=== PATIENT | male | born 1950 | race African-American/Black ===

== ENCOUNTER 2016-06-14 19:50 | Inpatient (IN) | payer OTHER ==
[2016-06-14 21:05] VITALS: BMI 24.5
--- NOTE | 2016-06-14 21:13 | HP ---
CIWA Score - CIWA Score Nausea/Vomitin-No Nausea/No Vomiting Muscle Tremors: 1-None Visible, but [employer] [place] Anxiety: 3 Agitation: 3 Paroxysmal Sweats: 3 Orientation: 0-Oriented Tacttile Disturbances: 2-Mild Itch/Numbness/Burn Auditory Disturbances: 0-None Visual Disturbances: 1-Very Mild Sensitivity Headache: 2-Mild CIWA-Ar Total Score: 15 Admission ROS [facility] - HPI Chief Complaint: WITHDRAWAL SYMPTOMS Allergies/Adverse Reactions: Allergies Allergy/AdvReac Type Severity Reaction Status Date / Time ibuprofen Allergy Verified 06/14/16 21:43 History of Present Illness: 65 Y.O. MAN WITH AN EXTENSIVE HISTORY ALCOHOL AND DRUG DEPENDENCE IS SEEKING TREATMENT. HE DOES NOT HAVE A SIGNIFICANT PERIOD OF SOBRIETY. HE IS CURRENTLY ON A MMTP. Exam Limitations: Physical Impairment (USES A CANE TO AMBULATE) - Ebola screening Have you traveled outside of the country in the last 21 days: No Have you had contact with anyone from an Ebola affected area: No Have you been sick,other than usual withdrawal symptoms: No Do you have a fever: No - Review of Systems Constitutional: Chills, Loss of Appetite, Night Sweats, Unintentional Wgt. Loss EENT: reports: Tearing Respiratory: reports: No Symptoms reported Cardiac: reports: No Symptoms Reported GI: reports: No Symptoms Reported, Poor Appetite : reports: No Symptoms Reported Musculoskeletal: reports: Back Pain, Neck Pain, Other (UNSTEADY GAIT) Integumentary: reports: No Symptoms Reported Neuro: reports: Headache, Numbness, Tingling Endocrine: reports: No Symptoms Reported Hematology: reports: No Symptoms Reported Psychiatric: reports: Orientated x3 Other Systems: Reviewed and Negative Patient History - Patient Medical History Hx Anemia: No Hx Asthma: No Hx Chronic Obstructive Pulmonary Disease (COPD): No Hx Cancer: No Hx Cardiac Disorders: No Hx Congestive Heart Failure: No Hx Hypertension: Yes Hx Hypercholesterolemia: No Hx Pacemaker: No HX Cerebrovascular Accident: No Hx Seizures: No Hx Dementia: No Hx Diabetes: Yes Hx Gastrointestinal Disorders: No Hx Liver Disease: No Hx Genitourinary Disorders: No Hx Sexually Transmitted Disorders: Yes (TREATED FOR GONORRHEA SEVERAL YEARS AGO. ) Hx Renal Disease (ESRD): No Hx Thyroid Disease: No Hx Human Immunodeficiency Virus (HIV): No Hx Hepatitis C: Yes (COMPLETED [place] ) Hx Depression: Yes Hx Suicide Attempt: No Hx Bipolar Disorder: No Hx Schizophrenia: No - Patient Surgical History Past Surgical History: Yes Hx Neurologic Surgery: No Hx Cataract Extraction: No Hx Cardiac Surgery: No Hx Lung Surgery: No Hx Breast Surgery: No Hx Breast Biopsy: No Hx Abdominal Surgery: No Hx Appendectomy: No Hx Cholecystectomy: No Hx Genitourinary Surgery: No Hx Section: No Hx Orthopedic Surgery: No Other Surgical History: torn tendon hands 2003, L4 herniated Anesthesia Reaction: No - PPD History Previous Implant?: (+ PPD HX.) Documented Results: Positive w/o proof - Reproductive History Patient is a Female of Child Bearing Age (11 -55 yrs old): No - Smoking Cessation Smoking history: Current every day smoker Have you smoked in the past 12 months: Yes Aproximately how many cigarettes per day: 3 Cigars Per Day: 0 Hx Chewing Tobacco Use: No Initiated information on smoking cessation: Yes 'Breaking Loose' booklet given: 06/14/16 - Substance & Tx. History Hx Alcohol Use: Yes Hx Substance Use: Yes Substance Use Type: Alcohol, Cocaine, Heroin, Tranquilizers Hx Substance Use Treatment: Yes - Substances Abused Alcohol Route: Oral Frequency: Daily Amount used: 1/2 PINT VODKA/ 6 BEERS Age of first use: 37 Date of Last Use: 06/14/16 Cocaine Route: Smoking Frequency: 1-2 times per week Amount used: $10 Age of first use: 47 Date of Last Use: 06/13/16 Heroin Route: Inhalation Frequency: 1-3 times last 30 days Age of first use: 20 Date of Last Use: 06/10/16 Family Disease History - Family Disease History Family Disease History: Heart Disease: Mother ( ) Admission Physical Exam [facility] - Vital Signs Vital Signs: Vital Signs - 24 hr 06/14/16 20:28 Temperature 98.8 F Pulse Rate 64 Respiratory 20 Rate Blood Pressure 152/79 - Physical General Appearance: Yes: Disheveled, Anxious HEENTM: Yes: Normocephalic, Normal Voice Respiratory: Yes: Chest Non-Tender, Lungs Clear, Normal Breath Sounds, No Respiratory Distress, No Accessory Muscle Use Neck: Yes: No masses,lesions,Nodules, Trachea in good position Breast: Yes: Breast Exam Deferred Cardiology: Yes: Regular Rhythm, Regular Rate Abdominal: Yes: Normal Bowel Sounds, Non Tender, Flat, Soft Genitourinary: Yes: Within Normal Limits Back: Yes: Normal Inspection Musculoskeletal: Yes: Back pain, Joint Stiffness, Other (AMBULATES WITH A CANE) Extremities: Yes: Other (lymphedema to B/L LE) Neurological: Yes: Fully Oriented, Alert, Normal Response Integumentary: Yes: Dry Lymphatic: Yes: Within Normal Limits - Diagnostic (1) Alcohol dependence with uncomplicated withdrawal Current Visit: Yes Status: Chronic (2) Opioid dependence on agonist therapy Current Visit: Yes Status: Chronic (3) Lymph edema Current Visit: Yes Status: Chronic (4) Hypertension Current Visit: Yes Status: Chronic (5) Diabetes mellitus, type 2 Current Visit: Yes Status: Chronic (6) Cocaine dependence, uncomplicated Current Visit: Yes Status: Chronic Cleared for Admission [facility] - Detox or Rehab [facility] Level of Care: Medically Managed Detox Regimen/Protocol: Librium [facility] Breath Alcohol Content Breath Alcohol Content: 0 Urine Drug Screen - Results Drug Screen Negative: No Urine Drug Screen Results: JEWELL-Cocaine, OPI-Opiates, BZO-Benzodiazepines, MTD- Methadone, TCA-Tricyclic Antidepress
[2016-06-14] MEDS ORDERED: diphenhydrAMINE HCL 50 MG CAPSULE PO PRN (21:28)
[2016-06-14] MEDS ORDERED: MAGNESIUM HYDROX 2400MG/30ML ORAL SUSPENSION 30 ML CUP PO PRN (21:28)
[2016-06-14] MEDS ORDERED: MENTHOL/PHENOL 1 EACH UD MM PRN (21:28)
[2016-06-14] MEDS ORDERED: MAG HYDROX/AL HYDROX/SIMETH 30 ML UNIT-DOSE CUP PO PRN (21:28)
[2016-06-14] MEDS ORDERED: MAGNESIUM CITRATE 300 ML BOTTLE PO PRN (21:28)
[2016-06-14] MEDS ORDERED: P-EPHED 60MG/TRIPROLIDI 2.5MG TABLET PO PRN (21:28)
[2016-06-14] MEDS ORDERED: chlordiazePOXIDE HCL 25 MG CAPSULE PO PRN (21:28)
[2016-06-14] MEDS ORDERED: chlordiazePOXIDE HCL 25 MG CAPSULE PO ONE (21:28)
[2016-06-14] MEDS ORDERED: guaiFENesin/D-METHORPHAN HB 10 ML UNIT-DOSE CUPS PO PRN (21:28)
[2016-06-14] MEDS ORDERED: LOPERAMIDE HCL 2 MG CAPSULE PO PRN (21:28)
[2016-06-14] MEDS ORDERED: hydrOXYzine PAMOATE 50 MG CAPSULE (FP) PO PRN (21:28)
[2016-06-14] MEDS: THIAMINE HCL 100 MG TABLET (FP) PO SCH (21:57)
[2016-06-14] MEDS: chlordiazePOXIDE HCL 25 MG CAPSULE PO SCH (21:59)
[2016-06-15 04:03] LABS: URINE APPEARANCE CLEAR; URINE BILIRUBIN NEGATIVE (NEGATIVE); URINE BLOOD NEGATIVE (NEGATIVE); URINE COLOR AMBER; URINE GLUCOSE (UA) NEGATIVE (NEGATIVE); URINE KETONE NEGATIVE (NEGATIVE); URINE LEUK ESTERASE NEGATIVE (NEGATIVE); URINE NITRITE NEGATIVE (NEGATIVE); URINE UROBILINOGEN 4.0 E.U/dl E.U./dl (0.2-1.0)
[2016-06-15 04:04] LABS: URINE PROTEIN 2+ (NEGATIVE)
[2016-06-15 04:13] LABS: URINE BACTERIA RARE /hpf (NONE SEEN); URINE HYALINE CAST 3 /lpf; URINE MUCUS MANY; URINE RBC 1 /hpf (0-3); URINE WBC 1 /hpf (3-5)
[2016-06-15] MEDS: chlordiazePOXIDE HCL 25 MG CAPSULE PO SCH ×4 (05:57→22:36)
[2016-06-15] MEDS: metFORMIN HCL 500 MG TABLET (FP) PO SCH (06:52)
[2016-06-15] MEDS ORDERED: metFORMIN HCL 500 MG TABLET (FP) PO SCH (07:00)
[2016-06-15] MEDS: METHADONE HCL 40 MG DISPERSABLE TABLET PO SCH (09:37)
--- NOTE | 2016-06-15 09:58 | CONSULT ---
[facility] Psychiatric Consult - Data Date of interview: 06/15/16 Admission source: [facility] Identifying data: First admission to [facility] for this 65 y/o AA male seeking detox treatment on for alcohol,cocaine,opioid and benzodiazepine (xanax/ klonopin) dependence.Patient is ,a father of two,domiciled and supported on alf benefits. Substance Abuse History: - Smoking Cessation. Smoking history: Current every day smoker. Have you smoked in the past 12 months: Yes. Aproximately how many cigarettes per day: 3. Cigars Per Day: 0. Hx Chewing Tobacco Use: No. Initiated information on smoking cessation: Yes. 'Breaking Loose' booklet given : 06/14/16. - Substance & Tx. History. Hx Alcohol Use: Yes. Hx Substance Use : Yes. Substance Use Type: Alcohol, Cocaine, Heroin, Tranquilizers. Hx Substance Use Treatment: Yes. - Substances Abused. Alcohol. Route: Oral. Frequency: Daily. Amount used: 1/2 PINT VODKA/ 6 BEERS. Age of first use: 37. Date of Last Use: 06/14/16. Cocaine. Route: Smoking. Frequency: 1-2 times per week. Amount used: $10. Age of first use: 47. Date of Last Use: 11/22. Heroin. Route: Inhalation. Frequency: 1-3 times last 30 days. Age of first use: 20. Date of Last Use: 06/10/16. Confirmed by patient in this interview. Medical History: Hypertension,hepatitis C,low back pain,bilateral lymphedema, herniated disk (L4 level) and a history of gonorrhea/+ PPD (treated).Noted report of a past history of hand surgery (torn tendons) in 2002. Psychiatric History: Patient denies history of psychiatric hospitalizations.He indicates that his primary care doctor was prescribing him xanax (switched later to clonazepam) for anxiety.No history of psychiatric OPD care.Mr [place] history of suicide attempts. Physical/Sexual Abuse/Trauma History: Patient denies. Additional Comment: Urine Drug Screen Results: JEWELL-Cocaine, OPI-Opiates, BZO- Benzodiazepines, MTD-Methadone, TCA-Tricyclic Antidepressants.Noted. Mental Status Exam - Mental Status Exam Alert and Oriented to: Time, Place, Person Cognitive Function: Good Patient Appearance: Well Groomed Mood: Hopeful, Euthymic Affect: Appropriate, Normal Range Patient Behavior: Fatigued, Appropriate, Cooperative Speech Pattern: Clear, Appropriate Voice Loudness: Normal Thought Process: Goal Oriented Thought Disorder: Not Present Hallucinations: Denies Suicidal Ideation: Denies Homicidal Ideation: Denies Insight/Judgement: Poor Sleep: Poorly, Difficulty falling asleep Appetite: Good Muscle strength/Tone: Normal Gait/Station: Other (walks with cane) Psychiatric Findings - Problem List ([place] 1, 2,3) (1) Alcohol dependence with uncomplicated withdrawal Current Visit: Yes Status: Acute (2) Cocaine dependence, uncomplicated Current Visit: Yes Status: Acute (3) Opioid dependence on agonist therapy Current Visit: Yes Status: Acute (4) Nicotine dependence Current Visit: Yes Status: Acute (5) Substance induced mood disorder Current Visit: Yes Status: Acute (6) Diabetes mellitus, type 2 Current Visit: Yes Status: Chronic (7) Hypertension Current Visit: Yes Status: Chronic (8) Lymph edema Current Visit: Yes Status: Chronic (9) Insomnia Current Visit: Yes Status: Acute - Initial Treatment Plan Initial Treatment Plan: Psychoeducation.Detoxification.Medication : zolpidem 5 mg po hs (patient's request) prn.Patient is made aware of the risk of parasomnias.He agrees with this careplan.Observation.Fall precautions.
[2016-06-15 10:18] LABS: ALBUMIN 2.7 g/dl (3.4-5.0); ANION GAP 5 (8-16); BILIRUBIN,TOTAL 0.3 mg/dL (0.2-1.0); CALCIUM 8.4 mg/dL (8.5-10.1); CO2 33 mmol/L (21-32); GLUCOSE,RANDOM 92 mg/dL (74-106); SGOT/AST 26 U/L (15-37); SGPT/ALT 33 U/L (12-78); TOT PROT 6.7 g/dl (6.4-8.2)
[2016-06-15 10:19] LABS: ALK PHOS 111 U/L (45-117)
[2016-06-15 10:23] LABS: MCH 30.2 pg (25.7-33.7); MCHC 32.9 g/dl (32.0-35.9); MEAN CELL VOLUME 91.8 fl (80-96); MEAN PLT VOLUME 6.8 fl (7.5-11.1); PLATELET COUNT 355 K/MM3 (134-434)
[2016-06-15] MEDS: LOSARTAN 50MG/HCTZ 12.5MG 1 TAB (FP) PO SCH (10:42)
[2016-06-15] MEDS: PRENATAL VITAMINS W/ FOLIC ACID TABLET (FP) PO SCH (10:42)
--- NOTE | 2016-06-15 10:54 | PN ---
[facility] CIWA - CIWA Score Nausea/Vomitin-Mild Nausea/No Vomiting Muscle Tremors: 3 Anxiety: 4-Mod. Anxious/Guarded Agitation: 4-Moderately Restless Paroxysmal Sweats: 3 Orientation: 1-Uncertain about Date Tacttile Disturbances: 1-Very Mild Itch/Numbness Auditory Disturbances: 0-None Visual Disturbances: 0-None Headache: 0-None Present CIWA-Ar Total Score: 17 S Progress Note (SOAP) Subjective: Anxiety,tremors,sweating,interrupted sleep,restless Objective: 06/15/16 10:53 Vital Signs - 8 hr 06/15/16 06/15/16 06/15/16 03:30 06:48 09:48 Temperature 97.5 F L 97 F L Pulse Rate 60 70 Respiratory 18 16 18 Rate Blood Pressure 145/86 165/89 Laboratory Tests 06/14/16 06/14/16 06/15/16 21:09 21:30 06:00 WBC RBC Hgb Hct MCV MCHC RDW Plt Count MPV Sodium Potassium Chloride Carbon Dioxide Anion Gap BUN Creatinine Creat Clearance w eGFR POC Glucometer 93 104 Random Glucose Calcium Total Bilirubin AST ALT Alkaline Phosphatase Total Protein Albumin Urine Color Shwetha Urine Appearance Clear Urine pH 5.0 Ur Specific [place] 1.029 Urine Protein 2+ H Urine Glucose (UA) Negative Urine Ketones Negative Urine Blood Negative Urine Nitrite Negative Urine Bilirubin Negative Urine Urobilinogen 4.0 e.u/dl Ur Leukocyte Esterase Negative Urine RBC 1 Urine WBC 1 Ur Epithelial Cells Rare Urine Bacteria Rare Hyaline Casts 3 Urine Mucus Many 06/15/16 06/15/16 07:00 07:00 WBC 5.0 RBC 3.94 L Hgb 11.9 Hct 36.1 MCV 91.8 MCHC 32.9 RDW 14.0 Plt Count 355 MPV 6.8 L Sodium 147 H Potassium 4.0 Chloride 109 H Carbon Dioxide 33 H Anion Gap 5 L BUN 18 Creatinine 1.0 Creat Clearance w eGFR > 60 POC Glucometer Random Glucose 92 Calcium 8.4 L Total Bilirubin 0.3 AST 26 ALT 33 Alkaline Phosphatase 111 Total Protein 6.7 Albumin 2.7 L Urine Color Urine Appearance Urine pH Ur Specific [place] Urine Protein Urine Glucose (UA) Urine Ketones Urine Blood Urine Nitrite Urine Bilirubin Urine Urobilinogen Ur Leukocyte Esterase Urine RBC Urine WBC Ur Epithelial Cells Urine Bacteria Hyaline Casts Urine Mucus labs noted Assessment: 06/15/16 10:53 Withdrawal sx. Plan: Continue detox
--- NOTE | 2016-06-15 13:03 | EKG ---
Test Reason : Blood Pressure : / mmHG Vent. Rate : 055 BPM Atrial Rate : 055 BPM P-R Int : 166 ms QRS Dur : 086 ms QT Int : 520 ms P-R-T Axes : 047 057 068 degrees QTc Int : 497 ms SINUS BRADYCARDIA VOLTAGE CRITERIA FOR LEFT VENTRICULAR HYPERTROPHY PROLONGED QT ABNORMAL ECG NO PREVIOUS ECGS AVAILABLE Confirmed by RINKU CHICAS MD ([id number]) on 06/15/2016 1:03:28 PM Referred By: Confirmed By:RINKU CHICAS MD
[2016-06-15] MEDS: THIAMINE HCL 100 MG TABLET (FP) PO SCH (22:36)
[2016-06-16] MEDS: METHADONE HCL 40 MG DISPERSABLE TABLET PO SCH (05:40)
[2016-06-16] MEDS: chlordiazePOXIDE HCL 25 MG CAPSULE PO SCH ×3 (05:40→18:27)
[2016-06-16] MEDS: metFORMIN HCL 500 MG TABLET (FP) PO SCH (07:37)
[2016-06-16] MEDS: PRENATAL VITAMINS W/ FOLIC ACID TABLET (FP) PO SCH (10:18)
[2016-06-16] MEDS: LOSARTAN 50MG/HCTZ 12.5MG 1 TAB (FP) PO SCH (10:18)
--- NOTE | 2016-06-16 14:25 | PN ---
S CIWA - CIWA Score Nausea/Vomitin Muscle Tremors: 3 Anxiety: 4-Mod. Anxious/Guarded Agitation: 4-Moderately Restless Paroxysmal Sweats: No Perspiration Orientation: 0-Oriented Tacttile Disturbances: 0-None Auditory Disturbances: 0-None Visual Disturbances: 0-None Headache: 3-Moderate CIWA-Ar Total Score: 17 BHS Progress Note (SOAP) Subjective: Anxious, Restlessness, Interrupted Sleep, Tremors, Body Aches Objective: 06/16/16 14:20 Vital Signs Temperature 95.8 F L 06/16/16 14:01 Pulse Rate 59 L 06/16/16 14:01 Respiratory Rate 18 06/16/16 14:01 Blood Pressure 144/85 06/16/16 14:01 O2 Sat by Pulse Oximetry (%) Laboratory Last Values WBC 5.0 K/mm3 (4.0-10.0) 06/15/16 07:00 RBC 3.94 M/mm3 (4.00-5.60) L 06/15/16 07:00 Hgb 11.9 GM/dL (11.7-16.9) 06/15/16 07:00 Hct 36.1 % (35.4-49) 06/15/16 07:00 MCV 91.8 fl (80-96) 06/15/16 07:00 MCHC 32.9 g/dl (32.0-35.9) 06/15/16 07:00 RDW 14.0 % (11.9-15.9) 06/15/16 07:00 Plt Count 355 K/MM3 (134-434) 06/15/16 07:00 MPV 6.8 fl (7.5-11.1) L 06/15/16 07:00 Sodium 147 mmol/L (136-145) H 06/15/16 07:00 Potassium 4.0 mmol/L (3.5-5.1) 06/15/16 07:00 Chloride 109 mmol/L (98-107) H 06/15/16 07:00 Carbon Dioxide 33 mmol/L (21-32) H 06/15/16 07:00 Anion Gap 5 (8-16) L 06/15/16 07:00 BUN 18 mg/dL (7-18) 06/15/16 07:00 Creatinine 1.0 mg/dL (0.7-1.3) 06/15/16 07:00 Creat Clearance w eGFR > 60 (>60) 06/15/16 07:00 POC Glucometer 93 UNITS (()) 06/16/16 06:29 Random Glucose 92 mg/dL (74-106) 06/15/16 07:00 Calcium 8.4 mg/dL (8.5-10.1) L 06/15/16 07:00 Total Bilirubin 0.3 mg/dL (0.2-1.0) 06/15/16 07:00 AST 26 U/L (15-37) 06/15/16 07:00 ALT 33 U/L (12-78) 06/15/16 07:00 Alkaline Phosphatase 111 U/L (45-117) 06/15/16 07:00 Total Protein 6.7 g/dl (6.4-8.2) 06/15/16 07:00 Albumin 2.7 g/dl (3.4-5.0) L 06/15/16 07:00 Urine Color Shwetha 06/14/16 21:30 Urine Appearance Clear 06/14/16 21:30 Urine pH 5.0 (5.0-8.0) 06/14/16 21:30 Ur Specific [place] 1.029 (1.001-1.035) 06/14/16 21:30 Urine Protein 2+ (NEGATIVE) H 06/14/16 21:30 Urine Glucose (UA) Negative (NEGATIVE) 06/14/16 21:30 Urine Ketones Negative (NEGATIVE) 06/14/16 21:30 Urine Blood Negative (NEGATIVE) 06/14/16 21:30 Urine Nitrite Negative (NEGATIVE) 06/14/16 21:30 Urine Bilirubin Negative (NEGATIVE) 06/14/16 21:30 Urine Urobilinogen 4.0 e.u/dl E.U./dl (0.2-1.0) 06/14/16 21:30 Ur Leukocyte Esterase Negative (NEGATIVE) 06/14/16 21:30 Urine RBC 1 /hpf (0-3) 06/14/16 21:30 Urine WBC 1 /hpf (3-5) 06/14/16 21:30 Ur Epithelial Cells Rare /hpf (FEW) 06/14/16 21:30 Urine Bacteria Rare /hpf (NONE SEEN) 06/14/16 21:30 Hyaline Casts 3 /lpf 06/14/16 21:30 Urine Mucus Many 06/14/16 21:30 RPR Titer Nonreactive (NONREACTIVE) 06/15/16 07:00 Labs and vitals noted 06/16/16 14:22 Assessment: Withdrawal Symptoms Plan: Continue Detox
[2016-06-16] MEDS: chlordiazePOXIDE 5 MG CAPSULE PO SCH (22:26)
[2016-06-16] MEDS: THIAMINE HCL 100 MG TABLET (FP) PO SCH (22:26)
[2016-06-16] MEDS: ZOLPIDEM TARTRATE 5 MG TABLET PO PRN (22:28)
[2016-06-17] MEDS: METHADONE HCL 40 MG DISPERSABLE TABLET PO SCH (05:42)
[2016-06-17] MEDS: chlordiazePOXIDE 5 MG CAPSULE PO SCH ×3 (05:43→17:54)
[2016-06-17] MEDS: metFORMIN HCL 500 MG TABLET (FP) PO SCH (07:02)
[2016-06-17] MEDS: PRENATAL VITAMINS W/ FOLIC ACID TABLET (FP) PO SCH (10:14)
[2016-06-17] MEDS: LOSARTAN 50MG/HCTZ 12.5MG 1 TAB (FP) PO SCH (10:14)
[2016-06-17] MEDS: ACETAMINOPHEN 325 MG TABLET (FP) PO PRN (14:44)
--- NOTE | 2016-06-17 19:27 | PN ---
BHS Progress Note (SOAP) Subjective: Sweating,interrupted sleep,restless Objective: 06/17/16 19:26 Vital Signs - 8 hr 06/17/16 18:30 Temperature 96.4 F L Pulse Rate 58 L Respiratory 18 Rate Blood Pressure 132/72 Laboratory Last Values WBC 5.0 K/mm3 (4.0-10.0) 06/15/16 07:00 RBC 3.94 M/mm3 (4.00-5.60) L 06/15/16 07:00 Hgb 11.9 GM/dL (11.7-16.9) 06/15/16 07:00 Hct 36.1 % (35.4-49) 06/15/16 07:00 MCV 91.8 fl (80-96) 06/15/16 07:00 MCHC 32.9 g/dl (32.0-35.9) 06/15/16 07:00 RDW 14.0 % (11.9-15.9) 06/15/16 07:00 Plt Count 355 K/MM3 (134-434) 06/15/16 07:00 MPV 6.8 fl (7.5-11.1) L 06/15/16 07:00 Sodium 147 mmol/L (136-145) H 06/15/16 07:00 Potassium 4.0 mmol/L (3.5-5.1) 06/15/16 07:00 Chloride 109 mmol/L (98-107) H 06/15/16 07:00 Carbon Dioxide 33 mmol/L (21-32) H 06/15/16 07:00 Anion Gap 5 (8-16) L 06/15/16 07:00 BUN 18 mg/dL (7-18) 06/15/16 07:00 Creatinine 1.0 mg/dL (0.7-1.3) 06/15/16 07:00 Creat Clearance w eGFR > 60 (>60) 06/15/16 07:00 POC Glucometer 89 UNITS (()) 06/17/16 05:42 Random Glucose 92 mg/dL (74-106) 06/15/16 07:00 Calcium 8.4 mg/dL (8.5-10.1) L 06/15/16 07:00 Total Bilirubin 0.3 mg/dL (0.2-1.0) 06/15/16 07:00 AST 26 U/L (15-37) 06/15/16 07:00 ALT 33 U/L (12-78) 06/15/16 07:00 Alkaline Phosphatase 111 U/L (45-117) 06/15/16 07:00 Total Protein 6.7 g/dl (6.4-8.2) 06/15/16 07:00 Albumin 2.7 g/dl (3.4-5.0) L 06/15/16 07:00 Urine Color Shwetha 06/14/16 21:30 Urine Appearance Clear 06/14/16 21:30 Urine pH 5.0 (5.0-8.0) 06/14/16 21:30 Ur Specific [place] 1.029 (1.001-1.035) 06/14/16 21:30 Urine Protein 2+ (NEGATIVE) H 06/14/16 21:30 Urine Glucose (UA) Negative (NEGATIVE) 06/14/16 21:30 Urine Ketones Negative (NEGATIVE) 06/14/16 21:30 Urine Blood Negative (NEGATIVE) 06/14/16 21:30 Urine Nitrite Negative (NEGATIVE) 06/14/16 21:30 Urine Bilirubin Negative (NEGATIVE) 06/14/16 21:30 Urine Urobilinogen 4.0 e.u/dl E.U./dl (0.2-1.0) 06/14/16 21:30 Ur Leukocyte Esterase Negative (NEGATIVE) 06/14/16 21:30 Urine RBC 1 /hpf (0-3) 06/14/16 21:30 Urine WBC 1 /hpf (3-5) 06/14/16 21:30 Ur Epithelial Cells Rare /hpf (FEW) 06/14/16 21:30 Urine Bacteria Rare /hpf (NONE SEEN) 06/14/16 21:30 Hyaline Casts 3 /lpf 06/14/16 21:30 Urine Mucus Many 06/14/16 21:30 RPR Titer Nonreactive (NONREACTIVE) 06/15/16 07:00 Hepatitis C Antibody >11.0 s/co ratio (0.0-0.9) H 06/14/16 07:00 labs noted Assessment: 06/17/16 19:26 Withdrawal sx. Plan: Continue detox
[2016-06-17] MEDS: THIAMINE HCL 100 MG TABLET (FP) PO SCH (22:23)
[2016-06-17] MEDS: chlordiazePOXIDE HCL 10 MG CAPSULE PO SCH (22:24)
[2016-06-17] MEDS: ZOLPIDEM TARTRATE 5 MG TABLET PO PRN (22:24)
[2016-06-18] MEDS: METHADONE HCL 40 MG DISPERSABLE TABLET PO SCH (05:36)
[2016-06-18] MEDS: chlordiazePOXIDE HCL 10 MG CAPSULE PO SCH ×2 (05:37→10:55)
[2016-06-18] MEDS: ACETAMINOPHEN 325 MG TABLET (FP) PO PRN (05:39)
[2016-06-18 06:46] VITALS: BP 151/83; PULSE 55; TEMP 97
[2016-06-18] MEDS: metFORMIN HCL 500 MG TABLET (FP) PO SCH (08:00)
[2016-06-18] MEDS: LOSARTAN 50MG/HCTZ 12.5MG 1 TAB (FP) PO SCH (10:55)
[2016-06-18] MEDS: PRENATAL VITAMINS W/ FOLIC ACID TABLET (FP) PO SCH (10:55)
--- NOTE | 2016-06-18 11:34 | DS ---
[facility] Detox Discharge Summary Admission Date: 06/14/16 Discharge Date: 06/18/16 - History Present History: Alcohol Dependence, Cocaine Dependence, MMTP Additional Comments: DETOX COMPLETED.ALERT O X 3. NAD. Pertinent Past History: DM HTN [id number] - Physical Exam Results Vital Signs: Vital Signs Temperature 97 F L 06/18/16 06:46 Pulse Rate 55 L 06/18/16 06:46 Respiratory Rate 18 06/18/16 06:46 Blood Pressure 151/83 06/18/16 06:46 O2 Sat by Pulse Oximetry (%) Pertinent Admission Physical Exam Findings: WITHDRAWAL SX - Treatment Hospital Course: Detox Protocol Followed, Detoxed Safely, Responded well, Discharged Condition Good - Medication Discharge Medications: Ambulatory Orders Clonidine HCl [Catapres -] 0.2 mg PO BID 06/14/16 Gabapentin [Neurontin] 300 mg PO BID 06/14/16 Losartan/Hydrochlorothiazide [Losartan-Hctz 50-12.5 mg Tab] 1 each PO DAILY 12/23 Metformin HCl [Glucophage -] 500 mg PO DAILY 06/14/16 Trazodone HCl [Desyrel -] 50 mg PO HS 06/14/16 - Diagnosis (1) Alcohol dependence with uncomplicated withdrawal Status: Acute (2) Cocaine dependence, uncomplicated Status: Acute (3) Nicotine dependence Status: Acute Qualifiers: Nicotine product type: cigarettes Substance use status: in withdrawal Qualified Code(s): F17.213 - Nicotine dependence, cigarettes, with withdrawal (4) Diabetes mellitus, type 2 Status: Chronic (5) Hypertension Status: Chronic Qualifiers: Hypertension type: essential hypertension Qualified Code(s): I10 - Essential (primary) hypertension (6) Lymph edema Status: Chronic (7) Insomnia Status: Acute (8) Opioid dependence on agonist therapy Status: Chronic (9) Substance induced mood disorder Status: Acute - AMA Did Patient Leave Against Medical Advice: No
[2016-06-21 10:12] LABS: HCV LOG 10 6.162 (.)
== END 2016-06-18 09:30 | disposition home or self-care (01) | DRG 773 ==
LOC: YASAS 19:50 → Y3N 20:29
PROVIDERS: ADMIT Internal Medicine; ATTEND Internal Medicine
PROC: HZ2ZZZZ Detoxification Services for Substance Abuse Treatment (ICD-10-PCS; principal; 2016-06-18)
DX: F11.20 Opioid dependence, uncomplicated (principal); F10.230 Alcohol dependence with withdrawal, uncomplicated; F14.20 Cocaine dependence, uncomplicated; F17.210 Nicotine dependence, cigarettes, uncomplicated; F19.24 Other psychoactive substance dependence with psychoactive substance-induced mood disorder; I10 Essential (primary) hypertension; E11.9 Type 2 diabetes mellitus without complications; Z79.84 Long term (current) use of oral hypoglycemic drugs; G47.00 Insomnia, unspecified; I89.0 Lymphedema, not elsewhere classified
CPT/HCPCS: 36415; 71020-TC; 80053; 81003; 81015; 85027; 86593; 87522; 93005; 93010